=== PATIENT | female | born 1965 | race Caucasian/White ===

== ENCOUNTER 2016-07-03 05:16 | Emergency (ER) | payer SELFPAY ==
[~2016-07-03 05:16] MED LIST: ANTIVERT25 MG PO; EC ASPIRIN325 MG PO; NORCO 5-325 TA1 EACH PO; NORCO 5/325 TAB1 TAB PO; PRAVACHOL20 MG PO; PRINIVIL20 M1 PO; SIMVASTATIN40 MG PO; XANAX0.5 MG PO
[2016-07-03 05:32] LABS: URINE APPEARANCE HAZY; URINE BILIRUBIN NEGATIVE (NEG); URINE BLOOD MODERATE (NEG); URINE COLOR YELLOW; URINE GLUCOSE (UA) NEGATIVE (NEG); URINE KETONE NEGATIVE (NEG); URINE LEUKOCYTE ESTERASE POSITIVE (NEG); URINE NITRITE NEGATIVE (NEG); URINE PROTEIN MODERATE (NEG); URINE SPECIFIC GRAVITY 1.025 (1.003-1.030)
[2016-07-03 05:46] LABS: URINE BACTERIA 1+; URINE MUCUS 1+; URINE RBC 0-3 /[HPF] (0-5)
[2016-07-03 05:50] LABS: BASO % 0.5 % (0-2); EOS % 2.5 % (0-7); HCT-HEMATOCRIT 45.7 % (34.0-49.0); HGB-HEMOGLOBIN 16.1 gm/dl (12.0-15.5); IMMATURE GRANULOCYTES ABSOLUTE 0.05 tho/cmm (0-0.03); IMMATURE GRANULOCYTES PERCENT 0.3 % (0-0.3); LYMPH % 38.2 % (20-45); MCH (MEAN CORPUSCULAR HGB) 33.1 pg (28.0-32.0); MCHC MEAN CORPUSCULAR HGB CONC 35.2 % (32.0-36.0); MEAN PLATELET VOLUME 10.3 cmc (9.4-12.4); MONO % 6.6 % (0-12); NEUTROPHIL ABSOLUTE COUNT 7.6 tho/cmm (1.6-8.0); NEUTROPHIL-AUTOMATED 7.6 tho/cmm (1.6-8.0); NEUTROPHILS % 51.9 % (40-80); PLATELET COUNT 268 tho/cmm (150-450); RED BLOOD COUNT 4.86 mil/cmm (4.00-5.20); WHITE BLOOD COUNT 14.7 tho/cmm (4.0-10.0)
[2016-07-03 05:55] LABS: BASO ABSOLUTE COUNT 0.1 tho/cmm (0.0-0.2); EOSINOPHIL ABSOLUTE COUNT 0.4 tho/cmm (0.0-0.7); LYMPH ABSOLUTE COUNT 5.6 tho/cmm (0.8-4.5)
[2016-07-03 06:40] LABS: BASO % 0.7 % (0-2); EOS % 2.3 % (0-7); HCT-HEMATOCRIT 43.3 % (34.0-49.0); LYMPH % 33.9 % (20-45); MCH (MEAN CORPUSCULAR HGB) 32.7 pg (28.0-32.0); MCHC MEAN CORPUSCULAR HGB CONC 34.6 % (32.0-36.0); MCV (MEAN CELL VOLUME) 94.3 fl (82.0-96.0); MEAN PLATELET VOLUME 10.3 cmc (9.4-12.4); MONO % 7.4 % (0-12); NEUTROPHIL ABSOLUTE COUNT 8.6 tho/cmm (1.6-8.0); NEUTROPHIL-AUTOMATED 8.6 tho/cmm (1.6-8.0); NEUTROPHILS % 55.7 % (40-80); PLATELET COUNT 294 tho/cmm (150-450); RED BLOOD COUNT 4.59 mil/cmm (4.00-5.20); RED CELL DISTRIBUTION WIDTH 12.9 % (12.4-16.4); WHITE BLOOD COUNT 15.5 tho/cmm (4.0-10.0)
[2016-07-03 06:41] LABS: BASO ABSOLUTE COUNT 0.1 tho/cmm (0.0-0.2); EOSINOPHIL ABSOLUTE COUNT 0.4 tho/cmm (0.0-0.7); LYMPH ABSOLUTE COUNT 5.3 tho/cmm (0.8-4.5); MONOCYTE ABSOLUTE COUNT 1.2 tho/cmm (0.0-1.2)
[2016-07-03] MEDS ORDERED: SIMVASTATIN20 M1 PO (06:50)
[2016-07-03 06:51] LABS: ANION GAP 11 mmol/L (0-20); BLOOD UREA NITROGEN 15 mg/dl (6-24); CALCIUM 8.6 mg/dl (8.5-10.5); CARBON DIOXIDE-VENOUS 26 mmol/L (22-32); CHLORIDE 111 mmol/l (96-110); CREATININE 0.94 mg/dl (0.50-1.10); GLUCOSE 139 mg/dL (70-110); SODIUM 144 mmol/L (135-145); eGFR VALUE FOR BLACK 82 mL/Min
[2016-07-03 06:53] LABS: POTASSIUM 3.8 mmol/L (3.7-5.1)
[2016-07-03 07:26] LABS: ALBUMIN 3.6 g/dl (3.5-5.0); ALKALINE PHOSPHATASE 102 U/L (33-138); ALT/SGPT 31 U/L (12-78); BILIRUBIN,DIRECT <0.1 mg/dl (0.0-0.3); BILIRUBIN,INDIRECT 0.1 mg/dL (0.0-1.0); BILIRUBIN,TOTAL 0.2 mg/dl (0-1.5); LIPASE 226 U/L (73-393)
[2016-07-03 07:37] LABS: AST/SGOT 20 U/L (10-40)
== END 2016-07-03 11:40 ==
LOC: EDMED 05:16
PROVIDERS: Emergency Medicine
DX: R10.9 Unspecified abdominal pain (principal); R11.2 Nausea with vomiting, unspecified; R09.02 Hypoxemia; K76.0 Fatty (change of) liver, not elsewhere classified; E78.5 Hyperlipidemia, unspecified; I10 Essential (primary) hypertension; J44.9 Chronic obstructive pulmonary disease, unspecified; F41.9 Anxiety disorder, unspecified; D68.51 Activated protein C resistance; F17.210 Nicotine dependence, cigarettes, uncomplicated
CPT/HCPCS: J1170; J1200; J1885; J2405; J2765; J7030; Q9967